=== PATIENT | female | born 1930 | race Caucasian/White ===

== ENCOUNTER 2016-09-27 17:13 | Emergency (ER) | payer OTHER ==
[2016-09-27 17:20] VITALS: BP 143/68
--- NOTE | 2016-09-27 17:29 | ED UPPER/LOWER EXTREMITY COMPL ---
History of Present Illness General Chief Complaint: General Adult Stated Complaint: BIBA WITH PAIN Source: EMS, W10 Exam Limitations: dementia Vital Signs & Intake/Output Vital Signs & Intake/Output Vital Signs Date Time Temp Pulse Resp B/P B/P Pulse O2 O2 Flow FiO2 Mean Ox Delivery Rate 09/27 1720 97.5 58 18 143/68 97 Room Air Room Air Allergies Coded Allergies: doxycycline (UNKNOWN 09/27/16) Reconcile Medications Acetaminophen 325 MG TABLET 2 TAB PO Q4H PRN PAIN/TEMP>/101 (Reported) Acetaminophen (Acephen) 650 MG SUPP.RECT 1 SUPP SD Q4H PRN PAIN/TEMP>/101 ( Reported) Aspirin (Ecotrin*) 81 MG TABLET.DR 1 TAB PO DAILY HEART/BLOOD (Reported) Atenolol 25 MG TABLET 1 TAB PO DAILY HEART/BP (Reported) Bisacodyl (Dulcolax) 10 MG SUPP.RECT 1 SUP RC PRN CONSTIPATION (Reported) Ibuprofen (Advil Migraine) 200 MG CAPSULE 600 MG PO BID PAIN/INFLAMMATION ( Reported) Lisinopril (Zestril) 10 MG TABLET 1 TAB PO DAILY BP (Reported) Magnesium Hydroxide (Milk Of Magnesia) 400 MG/5 ML ORAL.SUSP 30 ML PO DAILY PRN CONSTIPATION (Reported) Meclizine HCl 12.5 MG TABLET 1 TAB PO Q8H PRN N/V & DIZZINESS (Reported) Mirtazapine 30 MG TABLET 1 TAB PO QHS UNKNOWN (Reported) Multivitamin (Multi-Day Vitamins) 1 EACH TABLET 1 TAB PO DAILY SUPPLEMENT ( Reported) Na Phos,M-B/Na Phos,Di-Ba (Fleet Enema) 19 GRAM-7 GRAM/118 ML ENEMA 1 E RC DAILY PRN CONSTIPATION (Reported) Omeprazole 20 MG CAPSULE.DR 1 CAP PO DAILY GI (Reported) Trazodone HCl 50 MG TABLET 25 MG PO BID UNKNOWN (Reported) Triage Note: 89 YEAR OLD FEMALE BIBA FROM [facility] FOR RIGHT SHOULDER PAIN. PT BASELINE DEMENTIA OFFERS NO COMPLAINTS AT THIS TIME. PT NOTED TO BE MOVING RIGHT ARM FREELY. INFORMED WAITING PERFORMED, PT WAITING FOR PROVIDER EVAL. Triage Nurses Notes Reviewed? yes Onset: Abrupt Duration: day(s): (1) Timing: single episode today Severity: mild Pain/Injury Location: Right: Shoulder. Method of Injury: POSSIBLE FALL Associated Symptoms: BRUISING HPI: This is an 86-year-old female with history of dementia who presents via EMS from the residential for chief complaint of bruising noted to the right shoulder. They did an x-ray that saw questionable fracture of the clavicle. He did not have a sling in the residential. They're unsure if she fell as the patient is ambulatory on her own. The decision was made to bring her to the hospital. She is awake and alert but oriented 1 only. She doesn't know where she is or where the date is. She does not complain of pain unless you touch above her right shoulder. Some bruising to the top of the right shoulder and a small amount of bruising to the top of the left shoulder but no gross deformity. Patient has full range of motion of both arms. Past History Travel History Traveled to [place] past 21 day No Medical History Any Pertinent Medical History? see below for history Neurological: dementia Surgical History Surgical History: non-contributory Psychosocial History What is your primary language Ukrainian Tobacco Use: Never used Family History Hx Contributory? No Review of Systems Review of Systems Constitutional: Denies: fever. EENTM: Reports: no symptoms. Respiratory: Denies: short of breath. Cardiovascular: Denies: chest pain. Gastrointestinal/Abdominal: Reports: no symptoms. Genitourinary: Reports: no symptoms. Musculoskeletal: Reports: joint pain (MILD). Skin: Reports: no symptoms. Neurological/Psychological: Reports: no symptoms. Hematologic/Endocrine: Reports: bruising. Denies: bleeding. Immunological: Reports: no symptoms. All Other Systems: Reviewed and Negative Physical Exam Physical Exam General Appearance: alert, awake, anxious, mild distress Head: atraumatic Eyes: Bilateral: PERRL, EOMI. Ears, Nose, Throat: normal pharynx, normal ENT inspection, hearing grossly normal Neck: normal inspection, supple Cardiovascular/Respiratory: regular rate/rhythm Peripheral Pulses: 2+ radial (R), 2+ radial (L) Back: normal inspection Shoulder Left: normal range of motion, SMALL BRUISE OVER LEFT DELTOID Shoulder Right: normal range of motion, BRUISING IN SUPRACLAVICULAR FOSSA Elbow Left: normal range of motion, normal inspection Elbow Right: normal range of motion, normal inspection Hand Left: normal inspection, normal range of motion Hand Right: normal inspection, normal range of motion Skin: intact, normal color, warm/dry Lymphatic: no anterior cervical manuel Progress Differential Diagnosis: SHOULDER FRACTURE, CLAVICLE FRACTURE, RIB FRACTURE, PNEUMOTHORAX Plan of Care: Orders Procedure Date/time Status Durable Medical Equipment 09/28 1847 Active Diagnostic Imaging: Viewed by Me: CT Scan. Discussed w/RAD: CT Scan. Radiology Impression: PATIENT: ARINA RAMOS PRESENT AGE: 86 PATIENT ACCOUNT NO: [id number] : 29 LOCATION: [facility] ORDERING PHYSICIAN: MARLYN KEMP MD SERVICE DATE: 09/27/16 EXAM TYPE: CAT - CT CHEST WO IV CONTRAST EXAMINATION: CT CHEST WITHOUT CONTRAST CLINICAL INFORMATION : 86-year-old female with bruising of right shoulder. No known fall. Evaluate for rib fracture and pneumothorax. COMPARISON: None TECHNIQUE: Multidetector volumetric CT imaging of the chest was performed. Axial MIP volume rendering provided. Sagittal and coronal reformatted images were obtained. DLP: 285 mGy-cm FINDINGS: LUNGS AND PLEURA: Trachea and mainstem bronchi are widely patent. A opacity in the posterior right upper lobe extending along the proximal right major fissure as a somewhat triangular shape on some of the images (e.g. image 141, series 4) suggesting that this probably represents subsegmental atelectasis. There is a broader region of opacity (atelectasis and/or consolidation) in the posterior left upper lobe extending along the major fissure. A 0.4 cm noncalcified nodular focus along the minor fissure is consistent with a perifissural lymph node (image 268, series 4). The peripheral opacity in the lateral segment of the right middle lobe adjacent to the distal major fissure has a triangular shape, suggestive of subsegmental atelectasis ( image 327, series 4). There are other scattered areas of atelectasis within the lingula and lower lobes. No pulmonary edema, pneumothorax or pleural effusion. Small calcified granulomas are present within the right lower lobe and left upper lobe. MEDIASTINUM: The heart size is normal. There is [id number] atherosclerotic calcification of coronary arteries. Also, there is atherosclerotic calcification of the thoracic aorta without aneurysm. The main pulmonary artery is 3.2 cm diameter. The right and left pulmonary arteries are mildly enlarged, as well. No pericardial effusion. 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 LYMPHATICS: No pathologic sized axillary or hilar lymph nodes. A prominent precarinal lymph node is 1.2 cm AP (image 24, series 2). There are calcified left hilar lymph nodes from old granulomatous disease.. UPPER ABDOMEN: Mild cortical atrophy of each kidney. Multiple small calculi and/or layering calcific debris are present within the gallbladder. OSSEOUS STRUCTURES: Multilevel degenerative arthropathy of the spine. The facet arthropathy and disc degeneration are associated with mild anterolisthesis at C7-T1 and T1-T2. Otherwise, thoracic vertebra have normal alignment. There is mild dextrocurvature of the thoracic spine. There is an acute, mildly displaced fracture of the distal third of the right clavicle. Bones have normal alignment at the acromioclavicular and glenohumeral joints. There is mild osteoarthritis of the left glenohumeral joint and both sternoclavicular joints. There are several old, healed left rib fractures. No evidence of an acute, displaced rib fracture. IMPRESSION: 1. Acute, mildly displaced fracture of the distal third of the right clavicle. 2. Multiple old, healed fractures of left-sided ribs. No acute rib injury. 3. Large hernia through the esophageal hiatus contains transverse colon and stomach. 4. Scattered opacities in both lungs likely represent areas of subsegmental atelectasis. However, it would be difficult to exclude superimposed pneumonia, especially in the posterior left upper lobe where the opacity has a broader and more consolidated appearance. 5. Old granulomatous disease as manifest by small calcified nodules in the right and left upper lobes and calcified lymph nodes at the left hilum. The 1.2 cm precarinal lymph node is of uncertain chronicity. It could be reactive to the pulmonary disease. Recommend exclusion of active pneumonia on the basis of clinical criteria. 6. Atherosclerosis of coronary arteries and thoracic aorta without aortic aneurysm. Pulmonary arteries are mildly enlarged; this suggests possibility of pulmonary arterial hypertension. 7. Cholelithiasis. DICTATED BY: FREDA BLANCO MD DATE/TIME DICTATED:09/27/161825 PROVIDER EDUCATION SPECIALIST:RODNEY DATE/TIME TRANSCRIBED:09/27/161825 CONFIDENTIAL, DO NOT COPY WITHOUT APPROPRIATE AUTHORIZATION. <Electronically signed in Other Vendor System> SIGNED BY: FREDA BLANCO MD 09/27/161847 Departure Departure Time of Disposition: 1847 Disposition: ACUTE REHAB FACILITY Condition: Stable Clinical Impression Primary Impression: Bruising Referrals: LINCOLN RAMIREZ MD (PCP/Family) Departure Forms: Customer Survey General Discharge Information Procedures Splinting Location: right shoulder immobilizer for comfort
[2016-09-27] MEDS ORDERED: ASPIRIN EC81 M1 PO (17:51)
[2016-09-27] MEDS ORDERED: OMEPRAZOLE20 M2 PO (17:51)
[2016-09-27] MEDS ORDERED: MULTI-DAY VITA1 EACH PO (17:51)
[2016-09-27] MEDS ORDERED: ZESTRIL10 M1 PO (17:52)
[2016-09-27] MEDS ORDERED: ATENOLOL25 M1 PO (17:52)
[2016-09-27] MEDS ORDERED: MIRTAZAPINE30 M2 PO (17:53)
[2016-09-27] MEDS ORDERED: TRAZODONE HCL50 M1 PO (17:53)
[2016-09-27] MEDS ORDERED: ADVIL MIGRAINE200 M1 PO (17:53)
[2016-09-27] MEDS ORDERED: ACETAMINOPHEN325 M2 PO (17:55)
[2016-09-27] MEDS ORDERED: ACEPHEN650 M1 PR (17:55)
[2016-09-27] MEDS ORDERED: FLEET ENEMA133 ML RC (17:56)
[2016-09-27] MEDS ORDERED: DULCOLAX10 M1 RC (17:56)
[2016-09-27] MEDS ORDERED: MILK OF MA400 MG/52 PO (17:57)
[2016-09-27] MEDS ORDERED: MECLIZINE HCL12.5 M1 PO (17:57)
--- NOTE | 2016-09-27 18:48 | CT SCAN REPORT ---
EXAMINATION: CT CHEST WITHOUT CONTRAST CLINICAL INFORMATION: 86-year-old female with bruising of right shoulder. No known fall. Evaluate for rib fracture and pneumothorax. COMPARISON: None TECHNIQUE: Multidetector volumetric CT imaging of the chest was performed. Axial MIP volume rendering provided. Sagittal and coronal reformatted images were obtained. DLP: 285 mGy-cm FINDINGS: LUNGS AND PLEURA: Trachea and mainstem bronchi are widely patent. A opacity in the posterior right upper lobe extending along the proximal right major fissure as a somewhat triangular shape on some of the images (e.g. image 141, series 4) suggesting that this probably represents subsegmental atelectasis. There is a broader region of opacity (atelectasis and/or consolidation) in the posterior left upper lobe extending along the major fissure. A 0.4 cm noncalcified nodular focus along the minor fissure is consistent with a perifissural lymph node (image 268, series 4). The peripheral opacity in the lateral segment of the right middle lobe adjacent to the distal major fissure has a triangular shape, suggestive of subsegmental atelectasis (image 327, series 4). There are other scattered areas of atelectasis within the lingula and lower lobes. No pulmonary edema, pneumothorax or pleural effusion. Small calcified granulomas are present within the right lower lobe and left upper lobe. MEDIASTINUM: The heart size is normal. There is [id number] atherosclerotic calcification of coronary arteries. Also, there is atherosclerotic calcification of the thoracic aorta without aneurysm. The main pulmonary artery is 3.2 cm diameter. The right and left pulmonary arteries are mildly enlarged, as well. No pericardial effusion. 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 LYMPHATICS: No pathologic sized axillary or hilar lymph nodes. A prominent precarinal lymph node is 1.2 cm AP (image 24, series 2). There are calcified left hilar lymph nodes from old granulomatous disease.. UPPER ABDOMEN: Mild cortical atrophy of each kidney. Multiple small calculi and/or layering calcific debris are present within the gallbladder. OSSEOUS STRUCTURES: Multilevel degenerative arthropathy of the spine. The facet arthropathy and disc degeneration are associated with mild anterolisthesis at C7-T1 and T1-T2. Otherwise, thoracic vertebra have normal alignment. There is mild dextrocurvature of the thoracic spine. There is an acute, mildly displaced fracture of the distal third of the right clavicle. Bones have normal alignment at the acromioclavicular and glenohumeral joints. There is mild osteoarthritis of the left glenohumeral joint and both sternoclavicular joints. There are several old, healed left rib fractures. No evidence of an acute, displaced rib fracture. IMPRESSION: 1. Acute, mildly displaced fracture of the distal third of the right clavicle. 2. Multiple old, healed fractures of left-sided ribs. No acute rib injury. 3. Large hernia through the esophageal hiatus contains transverse colon and stomach. 4. Scattered opacities in both lungs likely represent areas of subsegmental atelectasis. However, it would be difficult to exclude superimposed pneumonia, especially in the posterior left upper lobe where the opacity has a broader and more consolidated appearance. 5. Old granulomatous disease as manifest by small calcified nodules in the right and left upper lobes and calcified lymph nodes at the left hilum. The 1.2 cm precarinal lymph node is of uncertain chronicity. It could be reactive to the pulmonary disease. Recommend exclusion of active pneumonia on the basis of clinical criteria. 6. Atherosclerosis of coronary arteries and thoracic aorta without aortic aneurysm. Pulmonary arteries are mildly enlarged; this suggests possibility of pulmonary arterial hypertension. 7. Cholelithiasis.
== END 2016-09-27 19:39 ==
LOC: ERH 17:13
DX: S40.011A Contusion of right shoulder, initial encounter (principal); X58.XXXA Exposure to other specified factors, initial encounter; Y92.129 Unspecified place in nursing home as the place of occurrence of the external cause; Y93.9 Activity, unspecified